=== PATIENT | male | born 1985 | race Hispanic/Latino ===

== ENCOUNTER 2024-05-16 15:29 | Emergency (ER) | payer SELFPAY ==
[2024-05-16] VITALS (12 sets, daily range): BP systolic 133–159; BP diastolic 84–101
[~2024-05-16] VITALS: Ht 157.5 cm; Wt 77.0 kg
[2024-05-16] MEDS ORDERED: MULTIPLE VITAMIN 10 ML,THIAMINE HCL 100 MG in SODIUM CHLORIDE 0.9% 1,000 ML IV ONE (15:35)
[2024-05-16] MEDS ORDERED: SODIUM CHLORIDE 0.9% 1,000 ML IV ONE (15:35)
[2024-05-16] MEDS ORDERED: ONDANSETRON HCl 4 MG/2 ML SDV IV ONE (15:55)
[2024-05-16] MEDS ORDERED: MIDAZOLAM HCL 2 MG/2 ML VIAL IV ONE (15:55)
[2024-05-16 16:01] LABS: BASO% 0.8 % (0-3); EOS% 2.8 % (0-8); HEMATOCRIT 46.8 % (39.0-50.0); HEMOGLOBIN 15.4 g/dl (14.0-18.0); IMMATURE GRANULOCYTES 0.6 % (0.0-5.0); MEAN CELL VOLUME 84.9 fL CALC (80.0-100.0); MEAN CORPUSCULAR HGB 27.9 pG CALC (26.0-32.0); MEAN CORPUSCULAR HGB CONC 32.9 g/dL CAL (32.0-36.0); MONO% 7.9 % (2-13); NEUT# 3.96 thou/uL (1.82-7.42); NEUT% 55.9 % (42-76); RED BLOOD COUNT 5.51 mill/uL (4.70-6.10); RED CELL DISTRI WIDTH 13.5 % (11.5-15.5)
[2024-05-16 16:14] LABS: ALBUMIN 5.1 g/dL (3.2-5.0); BILIRUBIN, TOTAL 0.8 mg/dL (0.2-1.3); CREATININE 0.8 mg/dL (0.7-1.3); POTASSIUM 4.1 mmol/l (3.5-5.1); TOTAL PROTEIN 8.6 g/dL (6.3-8.2)
[2024-05-16 16:17] LABS: INTERNATIONAL NORMALIZED RATIO 1.1 RATIO (0.7-1.3)
[2024-05-16 16:24] LABS: PROTHROMBIN TIME 10.2 SECONDS (9.0-12.5)
[2024-05-16 19:03] LABS: URINE BILIRUBIN - DIPSTICK Negative (NEGATIVE); URINE BLOOD DIPSTICK Negative (NEGATIVE); URINE GLUCOSE - DIPSTICK Negative (NEGATIVE); URINE KETONE Negative (NEGATIVE); URINE LEUK ESTERASE Negative (NEGATIVE); URINE NITRITE - DIPSTICK Negative (Negative); URINE PROTEIN - DIPSTICK Negative (NEG-TRACE); URINE SPECIFIC GRAVITY 1.025; URINE UROBILINOGEN - DIPSTICK 0.2 E.U./dL (0.2)
[2024-05-16 19:04] LABS: URINE COLOR Yellow
[2024-05-16] MEDS ORDERED: LORazepam 2 MG/ML IV ONE (19:20)
[2024-05-16] MEDS ORDERED: chlordiazePOXIDE HCL 25 MG CAP PO ONE (19:25)
[2024-05-16] MEDS ORDERED: LIBRIUM10 MG PO (19:27)
== END 2024-05-16 20:03 | disposition left against medical advice (07) | DRG 894 ==
LOC: ED 15:29
PROVIDERS: Nurse Practitioner
DX: F10.939 Alcohol use, unspecified with withdrawal, unspecified (principal); Y90.1 Blood alcohol level of 20-39 mg/100 ml; Z53.29 Procedure and treatment not carried out because of patient's decision for other reasons
CPT/HCPCS: J2060